=== PATIENT | male | born 1965 | race Caucasian/White ===

== ENCOUNTER 2017-12-10 18:35 | Emergency (ER) | payer BC ==
[~2017-12-10] VITALS: Ht 190.5 cm; Wt 105.5 kg
[~2017-12-10 18:35] MED LIST: EFFEXOR XR75 MG PO
[2017-12-10 19:22] LABS: HEMATOCRIT 40.3 % (38.0-50.0); HEMOGLOBIN 14.6 G/DL (12.5-16.6); MCH 29.2 PG (29.0-34.0); MCHC 36.2 G/DL (30.0-36.0); MCV 80.6 FL (86-99); PLATELET COUNT 260 K/uL (156-360); RBC DIS.WIDTH-SD 34.8 % (39-53); WHITE BLOOD COUNT 12.1 K/uL (4.1-10.2)
[2017-12-10 19:30] LABS: ALBUMIN 4.2 g/dL (3.2-4.8); CHLORIDE 102 mEq/L (99-109); POTASSIUM 3.4 mEq/L (3.7-5.4); SODIUM 136 mEq/L (136-147)
[2017-12-10 19:33] LABS: GLUCOSE 125 mg/dL (70-99); TOTAL PROTEIN 7.1 g/dL (6.4-8.3)
[2017-12-10 19:35] LABS: TOTAL BILIRUBIN 0.8 mg/dL (0.0-1.0)
[2017-12-10 19:36] LABS: ALKALINE PHOSPHATASE 88 IU/L (3-129); CREATININE 0.9 mg/dL (0.6-1.3); GFR ESTIMATE (CALCULATED) > 59 mL/min/ (58.99-99999)
[2017-12-10 19:37] LABS: UREA NITROGEN (BUN) 15 mg/dL (9-23)
[2017-12-10 19:38] LABS: AST (GOT) 14 IU/L (2-34)
[2017-12-10 19:39] LABS: ALT (GPT) 13 IU/L (3-49)
[2017-12-10 19:40] LABS: LIPASE 16 U/L (1.0-51.0)
[2017-12-10 20:18] LABS: APPEARANCE CLEAR ((CLEAR)); BILIRUBIN NEGATIVE; BLOOD NEGATIVE; COLOR YELLOW ((YELLOW)); GLUCOSE (STRIP) NEGATIVE; KETONES 5; LEUKOCYTES NEGATIVE; NITRITE NEGATIVE; PROTEIN (STRIP) NEGATIVE; SPECIFIC GRAVITY 1.015 (1.000-1.030); UCUL ADDED? NO
[2017-12-11] MEDS ORDERED: ZOFRAN ODT8 MG PO (01:51)
[2017-12-11] MEDS ORDERED: ZANTAC300 MG PO (01:51)
[2017-12-11] MEDS ORDERED: PROTONIX40 MG PO (01:51)
[2017-12-11 02:34] LABS: TROP-I INTERPRETATION NEGATIVE; TROPONIN-I < 0.01 ng/mL (0.0-0.30)
[2017-12-11 03:08] VITALS: BP 153/96
== END 2017-12-11 03:12 | disposition home or self-care (01) ==
LOC: EME 18:35
PROVIDERS: Physician Assistant
DX: R10.13 Epigastric pain (principal); R11.2 Nausea with vomiting, unspecified; R03.0 Elevated blood-pressure reading, without diagnosis of hypertension; F41.9 Anxiety disorder, unspecified; F32.9 Major depressive disorder, single episode, unspecified
CPT/HCPCS: 74177; 76705; 80053; 81003; 83605; 83690; 84484; 85027; 93005; 99281; 99285; C9113; J1885; J2270; J2405; J7030; J7050; S0028